=== PATIENT | female | born 1970 | race Caucasian/White ===

== ENCOUNTER 2021-08-31 12:23 | Day surgery (SDC) | payer OTHER ==
[2021-08-31] MEDS ORDERED: Ondansetron 4 MG/2 ML SDV IV ONE (12:24)
[2021-08-31] MEDS ORDERED: Sodium Chloride 0.9% 10 ML Syringe FLUSH PRN (12:30)
[2021-08-31] MEDS ORDERED: Lactated Ringers 1,000 ML IV SCH (12:30)
[2021-08-31] MEDS ORDERED: Midazolam 1 MG/ML 2 ML SDV ONE (13:08)
[2021-08-31] MEDS ORDERED: Propofol 200 MG/20 ML SDV ONE (13:08)
== END 2021-08-31 15:16 | disposition home or self-care (01) ==
LOC: KA.SDS 12:23
PROVIDERS: ATTEND Surgery
DX: Z12.11 Encounter for screening for malignant neoplasm of colon (principal); F98.8 Other specified behavioral and emotional disorders with onset usually occurring in childhood and adolescence; F32.A Depression, unspecified; R73.01 Impaired fasting glucose; R23.2 Flushing; H61.21 Impacted cerumen, right ear; Z79.899 Other long term (current) drug therapy; Z01.812 Encounter for preprocedural laboratory examination; Z20.822 Contact with and (suspected) exposure to COVID-19; Z98.890 Other specified postprocedural states
CPT/HCPCS: 00812; J2250; J2405; J2704; J7120